=== PATIENT | female | born 1990 | race Caucasian/White ===

== ENCOUNTER 2016-07-10 15:37 | Emergency (ER) | payer OTHER ==
[~2016-07-10 15:37] MED LIST: DUONEB 2.5-0.5MG3 ML NEB; LEVAQUIN750 MG PO; ZOLOFT25 MG PO
== END 2016-07-10 18:55 | disposition home or self-care (01) ==
LOC: ER 15:37
DX: J06.9 Acute upper respiratory infection, unspecified (principal); J45.909 Unspecified asthma, uncomplicated; F17.210 Nicotine dependence, cigarettes, uncomplicated
CPT/HCPCS: 87400; 99283